=== PATIENT | female | born 1960 | race Caucasian/White ===

== ENCOUNTER 2019-09-26 14:51 | Emergency (ER) | payer OTHER, SELFPAY ==
[2019-09-26 15:00] VITALS: BP 144/79; PULSE 77; RESP 22; TEMP 36.6; O2SAT 100
--- NOTE | 2019-09-26 15:01 | ED.GENADULT ---
HPI - General Adult General Chief complaint: Unspecified Stated complaint: trouble breathing Time Seen by Provider: 09/26/19 15:01 Source: patient and RN notes reviewed History of Present Illness HPI narrative: Patient is a 59-year-old female who presents the urgent care with complaints of shortness of breath on exertion and difficulty making a bowel movement/constipation. Patient states that she has chronic constipation and had been on Linzess in the past with good relief. Patient states that she moved here approximately 1 year ago and does have a primary care doctor appointment tomorrow and plans on requesting a prescription for Linzess. Patient states that she is tried MiraLAX without any recent relief. States that her last bowel movement was approximately 3 to 4 days ago, which is normal for her. Patient denies of any blood in the stool or abdominal pain. Patient denies of any chest pain but states she does have a history of heart surgery. Patient denies of any difficulty breathing at rest. Patient states that her son made her get checked out today and she plans on seeing her primary tomorrow as scheduled. No other acute complaints. No acute distress noted. Patient read the plan of care. Related Data Home Medications Medication Instructions Recorded Confirmed albuterol sulfate 2 inh INHALATION DIRECTED 09/26/19 09/26/19 amiodarone 200 mg PO DAILY 09/26/19 09/26/19 carvedilol 3.125 mg PO DAILY 09/26/19 09/26/19 fluticasone propion-salmeterol 1 inh INHALATION DAILY 09/26/19 09/26/19 furosemide 20 mg PO DAILY 09/26/19 09/26/19 levothyroxine [Euthyrox] 100 mcg PO DAILY 09/26/19 09/26/19 pantoprazole 40 mg PO DAILY 09/26/19 09/26/19 polyethylene glycol 3350 17 g PO DAILY 09/26/19 09/26/19 pravastatin 40 mg PO DAILY 09/26/19 09/26/19 umeclidinium [Incruse Ellipta] 62.5 mcg INHALATION DAILY 09/26/19 09/26/19 Allergies Allergy/AdvReac Type Severity Reaction Status Date / Time No Known Allergies Allergy Verified 09/26/19 15:10 Review of Systems Review of Systems: Narrative: CONSTITUTIONAL: Denies fever, chills, or sweats. EYES: Denies visual changes, redness, or discharge. ENT: Denies rhinorrhea, congestion, sore throat, or otalgia. CARDIOVASCULAR: Denies chest pain, palpitations, or edema. RESPIRATORY: Reports of shortness of breath on exertion GASTROINTESTINAL: Reports of constipation GENITOURINARY: Denies dysuria or hematuria. SKIN: Denies rash or itching. MUSCULOSKELETAL: Denies back pain, joint pain, or myalgia. NEUROLOGIC: Denies headache, numbness, or weakness. All other systems reviewed are negative, except as documented in HPI. PMFSH Comments At the time of my signature, I reviewed and agree with the nursing past medical, surgical, social, and family history. There is no relevant family history pertinent to the patient complaint. Exam Narrative: Exam Narrative: GENERAL: This is a well-nourished, well-developed patient, in no apparent distress. HEAD: normocephalic, atraumatic. EYES: PERRL. Sclera clear/white. Vision is grossly intact. EARS: External ears normal NOSE: External nose normal with no obvious nasal discharge, nares without redness, no rhinorrhea. THROAT: Mucous membranes moist NECK: Neck supple, non-tender without lymphadenopathy, masses or thyromegaly. CARDIOVASCULAR: Regular rate and rhythm without murmurs, gallops, or rubs. RESPIRATORY: Clear to auscultation. Breath sounds equal bilaterally. GASTROINTESTINAL: Abdomen soft, non-tender. Bowel sounds are active. SKIN: warm, intact with no suspicious lesions or rash, good texture and turgor. NEURO: awake, alert, and oriented to person, place and time. There were no obvious focal neurologic abnormalities. EXTREMITIES: No clubbing, cyanosis, or edema. Course Vital Signs Vital signs: Vital Signs Temperature 98 F 09/26/19 15:00 Pulse Rate 77 09/26/19 15:00 Respiratory Rate 22 H 09/26/19 15:00 Blood Pressure 144/79 H 09/26/19 15:00 Pul
--- NOTE | 2019-09-26 15:16 | ECG_ITS ---
Measurements Intervals Yoder Rate: 70 P: 37 CO: 199 QRS: -37 QRSD: 167 T: 118 QT: 485 QTc: 526 Interpretive Statements SINUS RHYTHM LEFT AXIS DEVIATION LEFT BUNDLE BRANCH BLOCK BASELINE ARTIFACT- I, II, III, AVR, AVL, AVF ABNORMAL ECG Electronically Signed On 09-26-2019 15:59:53 CDT by Abisai England D.O.
== END 2019-09-26 15:31 | disposition left against medical advice (07) ==
PROVIDERS: Emergency Provider Nurse Practitioner Family
DX: R06.02 Shortness of breath (principal); I44.7 Left bundle-branch block, unspecified; I50.9 Heart failure, unspecified; E78.00 Pure hypercholesterolemia, unspecified; J44.9 Chronic obstructive pulmonary disease, unspecified; M19.90 Unspecified osteoarthritis, unspecified site; E03.9 Hypothyroidism, unspecified
CPT/HCPCS: 93005; 99213; G0463

== ENCOUNTER 2019-12-24 07:55 | Outpatient (CLI) | payer OTHER, SELFPAY ==
--- NOTE | ~2019-12-24 | US_ITS ---
EXAMINATION: US paracentesis abd w/image DATE: 12/24/2019 10:46 INDICATION: Ascites. TECHNIQUE: The procedure and its risks and benefits were discussed with the patient. Potential risks discussed included bleeding and infection. The skin was prepped and draped in sterile fashion. 1% lid ocaine was used for local anesthesia. Under ultrasound guidance, a 5 Fr catheter with trochar was adv anced into the ascites in the lateral left mid abdomen. Fluid was aspirated into vacuum bottles. The catheter was removed, and a dressing was applied. There were no immediate complications. FINDINGS: Ultrasound images demonstrate ascites and the catheter within the fluid. IMPRESSION: 1. Successful ultrasound-guided paracentesis yielding 2300 mL of dark malika-colored fluid. Reviewed, dictated and finalized at location A. IMPRESSION: 1. Successful ultrasound-guided paracentesis yielding 2300 mL of dark malika-co lored fluid.
[2019-12-24 09:42] LABS: Basophils Absolute Auto 0.1 K/mm3 (0.0-0.1); Basophils Percent Auto 0.9 % (0.2-1.2); Eosinophils Absolute Auto 0.2 K/mm3 (0-0.3); Eosinophils Percent Auto 2.6 % (0-4.4); Hematocrit 33.4 % (37.0-47.0); Immature Granulocyte Absolute 0.03 K/mm3 (0.00-0.031); Immature Granulocyte Percent A 0.4 % (0-0.5); Lymphocytes Absolute Auto 0.76 K/mm3 (0.9-3.2); Lymphocytes Percent Auto 10.3 % (18.3-44.2); Mean Corpuscular HGB Conc 29.9 g/dl (32-36); Mean Corpuscular Hemoglobin 27.2 pg (26-34); Mean Platelet Volume 10.1 fl (7.4-10.4); Monocytes Absolute Auto 0.8 K/mm3 (0.1-0.6); Monocytes Percent Auto 10.9 % (2.6-8.5); Neutrophils Absolute Auto 5.5 K/mm3 (1.3-6.7); Neutrophils Percent Auto 74.9 % (45.5-73.1); Platelet Count Result 214 k/mm3 (150-375); Red Blood Count 3.67 M/mm3 (4.2-5.4); Red Cell Distribution Width 17.7 % (11.5-14.5); White Blood Count 7.4 K/mm3 (4.5-10.0)
[2019-12-24 09:53] LABS: INR 1.2; Prothrombin Time 14.9 Seconds (11.1-14.7)
[2019-12-24 12:40] LABS: Source Peritoneal Fluid Peritoneal Fluid
[2019-12-24 12:41] LABS: Appearance Peritoneal Fluid Hazy (Clear); Color Peritoneal Fluid Yellow (Colorless); Lymphocytes Peritoneal Fluid 32 %; Macrophages Peritoneal Fluid 64 %; Monocytes Peritoneal Fluid 4 %
[2019-12-26 19:25] LABS: Albumin Peritoneal Fluid 2.6 g/dL
== END 2019-12-24 07:56 | disposition home or self-care (01) ==
PROVIDERS: Radiology Diagnostic Radiology; PCP Physician Assistant; Visit Provider Internal Medicine Gastroenterology
DX: R18.8 Other ascites (principal); R16.0 Hepatomegaly, not elsewhere classified
CPT/HCPCS: 36415; 49083; 82042; 85025; 85610; 87070; 87075; 87205; 89051